=== PATIENT | male | born 1945 | race Caucasian/White ===

== ENCOUNTER → 2019-04-17 | Outpatient (CLI) | payer MEDICARE, OTHER | LOC: COL.RAD 12:26 | DX: M19.042 Primary osteoarthritis, left hand (principal) | CPT/HCPCS: J3301; Q9967 ==

== ENCOUNTER 2021-04-14 08:23 | Day surgery (SDC) | payer MEDICARE, OTHER ==
[~2021-04-14] VITALS: Ht 172.7 cm; Wt 73.4 kg
[2021-04-14] MEDS ORDERED: LASIX 40MG TABL40 MG PO (09:06)
[2021-04-14] MEDS ORDERED: LIPITOR 40MG TA40 MG PO (09:06)
[2021-04-14] MEDS ORDERED: PRIL40 PO (09:06)
[2021-04-14] MEDS ORDERED: ALDACTONE50 MG PO (09:07)
[2021-04-14] MEDS ORDERED: K-TAB10 PO (09:07)
[2021-04-14] MEDS ORDERED: NATURE'S BLEND100 M2 PO (09:08)
[2021-04-14 09:21] VITALS: BP 157/75; PULSE 94; TEMP 97.8
[2021-04-14 10:25] VITALS: BP 131/63; PULSE 92; TEMP 97.8
--- NOTE | 2021-04-14 10:25 | NUR ---
PATIENT BROUGHT BACK TO [facility] V[address] CART. AMBULATED WITHOUT DIFFICULTY. PLACED ON MONITORS, VITAL SIGNS STABLE. DENIES PAIN OR NAUSEA. REPORT RECIEVED FROM LEÓN RIVERA, ALL QUESTIONS ANSWERED. IV INFUSING. FAMILY AT BEDSIDE TO DRIVE PATIENT HOME. REQUESTS SPRITE AT THIS TIME. CALL MCCARTHY WITHIN REACH, WARM BLANKET PROVIDED. WILL CONTINUE TO MONITOR.
[2021-04-14 10:40] VITALS: BP 146/75; PULSE 89
--- NOTE | 2021-04-14 10:40 | NUR ---
PATIENT TOLERATING SPRITE WITHOUT DIFFICULTY. AWAITING TO SPEAK DR. CAST AT THIS TIME. WILL CONTINUE TO MONITOR.
[2021-04-14 10:55] VITALS: BP 150/76; PULSE 87
--- NOTE | 2021-04-14 10:55 | NUR ---
PATIENT STATES HE FEELS READY TO GO HOME AT THIS TIME. DR. CAST AT BEDSIDE TO REVIEW RESULTS WITH PATIENT AND FAMILY. VITAL SIGNS STABLE.
--- NOTE | 2021-04-14 11:10 | NUR ---
IV REMOVED, INTACT. DISCHARGE INSTRUCTIONS REVIEWED WITH PATIENT AND FAMILY. PATIENT TO GET DRESSED AT THIS TIME.
--- NOTE | 2021-04-14 11:18 | NUR ---
PATIENT BROUGHT DOWN TO LOBBY VIA WHEEL CHAIR. TO DRIVE PATIENT HOME. ALL BELONGINGS IN HAND.
== END 2021-04-14 11:18 | disposition home or self-care (01) ==
LOC: SDCO 08:23
DX: I85.01 Esophageal varices with bleeding (principal); K31.89 Other diseases of stomach and duodenum; K74.60 Unspecified cirrhosis of liver; R18.8 Other ascites; K21.9 Gastro-esophageal reflux disease without esophagitis; I10 Essential (primary) hypertension; E78.5 Hyperlipidemia, unspecified; R21 Rash and other nonspecific skin eruption; Z79.899 Other long term (current) drug therapy; Z79.82 Long term (current) use of aspirin; Z87.11 Personal history of peptic ulcer disease; Z79.52 Long term (current) use of systemic steroids
CPT/HCPCS: J2704; J7120

== ENCOUNTER 2021-05-26 09:29 | Outpatient (CLI) | payer MEDICARE, OTHER ==
--- NOTE | 2021-05-22 09:44 | NUR ---
LMOM WITH INSTRUCTIONS AND CALL BACK NUMBER
[~2021-05-26] VITALS: Ht 172.7 cm; Wt 75.7 kg
[2021-05-26 10:02] VITALS: BP 162/74; PULSE 97; TEMP 97.9
[2021-05-26 11:35] LABS: PERITONEAL -POLYMORPHONUCLEAR 2.9 % (0-25)
[2021-05-26 11:40] VITALS: BP 135/78; PULSE 104; TEMP 97.9
[2021-05-28 10:50] LABS: Fluid Type PERITONEAL
== END 2021-05-26 12:46 | disposition home or self-care (01) ==
LOC: COL.RAD 09:29
PROVIDERS: Internal Medicine Gastroenterology
DX: K74.60 Unspecified cirrhosis of liver (principal)
CPT/HCPCS: P9047

== ENCOUNTER → 2021-05-26 | Emergency (ER) | payer MEDICARE, OTHER ==
[~2021-05-26] MED LIST: ALDACTONE50 MG PO; K-TAB10 PO; LASIX 40MG TABL40 MG PO; LIPITOR 40MG TA40 MG PO; NATURE'S BLEND100 M2 PO; PRIL40 PO
== END ==
LOC: COL.ER 14:09
DX: R69 Illness, unspecified (principal)

== ENCOUNTER 2021-07-03 09:28 | Outpatient (CLI) | payer MEDICARE, OTHER ==
[~2021-07-03] VITALS: Ht 172.7 cm; Wt 77.0 kg
[2021-07-03 09:46] VITALS: BP 136/77; PULSE 100; TEMP 97.9
[2021-07-03 11:43] VITALS: BP 157/79; PULSE 98; TEMP 97.9
[2021-07-03 11:45] LABS: PERITONEAL -POLYMORPHONUCLEAR 3.6 % (0-25)
== END 2021-07-03 13:40 | disposition home or self-care (01) ==
LOC: COL.RAD 09:28
PROVIDERS: Internal Medicine Gastroenterology
DX: K74.60 Unspecified cirrhosis of liver (principal)
CPT/HCPCS: P9047

== ENCOUNTER → 2021-07-24 | Outpatient (CLI) | payer MEDICARE, OTHER | LOC: COL.RAD 10:26 | DX: K70.31 Alcoholic cirrhosis of liver with ascites (principal) ==

== ENCOUNTER 2021-07-27 09:16 | Outpatient (CLI) | payer MEDICARE, OTHER ==
[~2021-07-27] VITALS: Ht 172.7 cm; Wt 75.1 kg
[2021-07-27 09:42] VITALS: BP 147/82; PULSE 102; TEMP 97.5
[2021-07-27 12:23] LABS: PERITONEAL -POLYMORPHONUCLEAR 1.7 % (0-25)
[2021-07-27 12:38] VITALS: BP 134/70; PULSE 110
== END 2021-07-27 18:27 | disposition home or self-care (01) ==
LOC: COL.RAD 09:16
PROVIDERS: Internal Medicine Gastroenterology
DX: K70.31 Alcoholic cirrhosis of liver with ascites (principal)
CPT/HCPCS: P9047

== ENCOUNTER 2021-08-14 09:01 | Outpatient (CLI) | payer MEDICARE, OTHER ==
[~2021-08-14] VITALS: Ht 172.7 cm; Wt 73.5 kg
[2021-08-14 09:20] VITALS: BP 1515/85; PULSE 99; TEMP 97.2
[2021-08-14 10:34] LABS: PERITONEAL -POLYMORPHONUCLEAR 2.2 % (0-25)
[2021-08-14 11:20] VITALS: BP 134/82; PULSE 63
== END 2021-08-14 13:47 ==
LOC: COL.RAD 09:01
PROVIDERS: Internal Medicine Gastroenterology
DX: K70.31 Alcoholic cirrhosis of liver with ascites (principal)
CPT/HCPCS: P9047

== ENCOUNTER 2021-09-03 12:31 | Outpatient (CLI) | payer MEDICARE, OTHER ==
[~2021-09-03] VITALS: Ht 172.7 cm; Wt 75.3 kg
[2021-09-03] MEDS ORDERED: BUMEX 1MG TA1 MG/TA1 PO (13:27)
[2021-09-03 13:29] VITALS: BP 151/85; PULSE 85; TEMP 97.3
[2021-09-03 15:37] VITALS: BP 124/70; PULSE 101
[2021-09-03 15:54] LABS: PERITONEAL -POLYMORPHONUCLEAR 2.5 % (0-25)
--- NOTE | 2021-09-03 18:28 | NUR ---
pt has done well during his infusion of albumin. Pt is steady on his feet to bathroom at conclusion of infusion and generally feeling better. no complaints of sob at time of departure. to exit via wheelchair.
== END 2021-09-03 18:30 | disposition home or self-care (01) ==
LOC: COL.RAD 12:31
PROVIDERS: Internal Medicine Gastroenterology
DX: K70.31 Alcoholic cirrhosis of liver with ascites (principal)
CPT/HCPCS: P9047

== ENCOUNTER 2021-10-02 08:42 | Outpatient (CLI) | payer MEDICARE, OTHER ==
[~2021-10-02] VITALS: Ht 172.7 cm; Wt 72.9 kg
[~2021-10-02 08:42] MED LIST changes: +BUMEX 1MG TA1 MG/TA1 PO
[2021-10-02 09:03] VITALS: BP 136/83; PULSE 100; TEMP 97.5
[2021-10-02 11:51] VITALS: BP 90/42; PULSE 101; TEMP 97.6
[2021-10-02 12:25] LABS: PERITONEAL -POLYMORPHONUCLEAR 2.7 % (0-25)
--- NOTE | 2021-10-02 14:48 | NUR ---
Pt assisted out to ride's car by wheelchair with belongings. INT was DC'd with catheter intact.
== END 2021-10-02 14:49 | disposition home or self-care (01) ==
LOC: COL.RAD 08:42
PROVIDERS: Internal Medicine Gastroenterology
DX: K70.31 Alcoholic cirrhosis of liver with ascites (principal)
CPT/HCPCS: P9047

== ENCOUNTER 2021-10-16 08:54 | Outpatient (CLI) | payer MEDICARE, OTHER ==
[~2021-10-16] VITALS: Ht 172.7 cm; Wt 70.7 kg
[2021-10-16 09:12] VITALS: BP 154/89; PULSE 112; TEMP 97.9
--- NOTE | 2021-10-16 09:30 | NUR ---
pt taken to ultrasound and care given over to bc.
[2021-10-16 11:11] VITALS: BP 117/63; PULSE 105; TEMP 97.9
== END 2021-10-16 13:44 ==
LOC: COL.RAD 08:54
PROVIDERS: Internal Medicine Gastroenterology
DX: K70.31 Alcoholic cirrhosis of liver with ascites (principal)
CPT/HCPCS: P9047

== ENCOUNTER 2021-10-23 14:51 | Observation (INO) | payer MEDICARE, OTHER ==
[~2021-10-23] VITALS: Ht 172.7 cm; Wt 58.0 kg
[2021-10-23] MEDS ORDERED: K-DUR20 MEQ PO (17:09)
[2021-10-23] MEDS ORDERED: VIRTUSSIN AC 1118 ML PO (17:17)
[2021-10-23 17:21] VITALS: BP 104/58; PULSE 102; TEMP 97.6
--- NOTE | 2021-10-23 18:31 | NUR ---
PT SITTING UP IN CHAIR ON ROOM AIR. PT STATES NO PAIN AT THIS TIME. PT STATES THAT HE IS COLD AND WOULD LIKE TO HAVE A BLANKET. BLANETS WERE GOTTEN FOR PT. AT BEDSIDE. FAMILY STATING THAT SHE WOULD LIKE FOR PT TO HAVE A WALKER IN ROOM JUST INCASE HE NEEDS IT. WALKER WAS GOTTEN AND PLACED IN ROOM. NO OTHER NEEDS/CONCERNS WERE VOICED. CALL LIGHT IS WITHIN REACH.
--- NOTE | 2021-10-23 18:56 | NUR ---
PT WAS PUT INTO COMPUTER A FULL CODE. PT AND STATES THAT HE IS A DNR. STATES THAT THEY HAVE PAPERWORK BUT IT IS AT HOME AND SHE WILL BRING A COPY WITH HER TOMORROW WHEN SHE COMES IN. PT STATES "HELL NO I DO NOT WANT ANY OF THAT STUFF DONE TO ME." CONFIRMED WITH NICOLE STRAUSS. CHELY ARMSTRONG CALLED AND INFOMRED STATES THAT SHE WILL CHANGE IT IN THE COMPUTER.
[2021-10-23 20:04] VITALS: BP 113/69; PULSE 94; TEMP 97.5
[2021-10-23 23:24] VITALS: BP 129/85; PULSE 93; TEMP 97.4
--- NOTE | 2021-10-24 00:06 | NUR ---
Pt alert and oriented this evening. Sitting in chair, but has since returned to bed. NS running at 60 ml/hr. Pt denies pain and weakness. Stated he had been up to ambulate with family during the day time. Up to void as a standby assist. VS stable. BP 129/85. Shift assessment performed. Pt refused evening melatonin, but did request something for a cough. PRN tessalon stan administered. No edema noted in the extremities. Afebrile. Lungs clear. Pt reports no questions at this time, will continue to monitor.
[2021-10-24 03:26] VITALS: BP 101/55; PULSE 83; TEMP 98.1
--- NOTE | 2021-10-24 05:34 | NUR ---
No adverse events overnight. Pt alert and oriented, resting currently. Denies pain and weakness. Up to void overnight with standby assistance. Pt ambulated well. No SOB. Denies pain. Medications administered per orders. VS stable. NS continues at 60 ml/ hr. Pt calm and cooperative. Pt reports no questions, will continue to monitor.
[2021-10-24 06:23] LABS: BASO # 0.1 K/mm3 (0.0-0.2); BASO % 0.6 % (0.0-2.0); EOS # 0.4 K/mm3 (0.0-0.7); EOS % 3.8 % (0.0-4.0); GRAN # 6.1 K/mm3 (1.4-6.5); GRAN % 62.7 % (42.2-75.2); HEMOGLOBIN 10.1 g/dl (13.5-18.0); LYMPH # 2.1 K/mm3 (1.2-3.4); LYMPH % 21.6 % (20.0-51.0); MEAN CELL VOLUME 97 fl (80.0-100.0); MEAN CORPUSCULAR HEMOGLOBIN 33 pg (27-31); MEAN CORPUSCULAR HGB CONC 34 g/dl (33.0-37.0); MONO # 1.1 K/mm3 (0.1-0.6); MONO % 10.8 % (1.7-9.3); PLATELET COUNT 109 K/mm3 (130-400); REDCELL DISTRIBUTION WIDTH-CV 14.6 % (11.5-14.5)
[2021-10-24 06:39] LABS: ALBUMIN 2.4 gm/dL (3.4-4.8); BILIRUBIN,TOTAL 2.4 mg/dL (0.2-1.2); CREATININE, serum 2.11 mg/dL (0.72-1.25); POTASSIUM 4.4 mmol/L (3.5-4.5); TOTAL PROTEIN 4.7 gm/dL (6.2-8.1)
[2021-10-24 06:41] LABS: HEMATOCRIT 30.1 % (42.0-52.0)
[2021-10-24 06:59] LABS: BILIRUBIN,DIRECT 1.4 mg/dL (0.0-0.5)
[2021-10-24 07:22] VITALS: BP 102/57; PULSE 88; TEMP 97.3
--- NOTE | 2021-10-24 08:13 | NUR ---
PT LAYING SUPINE IN BED ON ROOM AIR. PT STATES THAT HE HAS BEEN TRYING TO CALL FOR BREAKFAST AND HAS BEEN UNABLE TO GET THROUGH. PT STATES NO PAIN OR DISCOMFORT AT THIS TIME. PT STATES THAT "I HAD A REALLY GOOD NIGHT, I SLEPT REALLY GOOD AND FEEL REALLY RESTED." PT STATES THAT HE WOULD LIKE TO HAVE COFFEE AND A CUP OF ICE. ITEMS WERE GOTTEN FOR PT. CALL LIGHT IN REACH.
[2021-10-24] MEDS ORDERED: TESSALON P100 MG/CAP PO (09:51)
--- NOTE | 2021-10-24 12:38 | NUR ---
Before patient was discharged, open hearth worker prayed and offered support with patient and family.
== END 2021-10-24 11:10 | disposition home or self-care (01) ==
LOC: MEDICAL 14:51
DX: D72.829 Elevated white blood cell count, unspecified (principal); R53.1 Weakness; K70.30 Alcoholic cirrhosis of liver without ascites; K21.9 Gastro-esophageal reflux disease without esophagitis; N17.9 Acute kidney failure, unspecified; N18.9 Chronic kidney disease, unspecified; I95.9 Hypotension, unspecified; I10 Essential (primary) hypertension; E87.1 Hypo-osmolality and hyponatremia; E87.5 Hyperkalemia; Z66 Do not resuscitate; G89.29 Other chronic pain; M54.9 Dorsalgia, unspecified; Z79.899 Other long term (current) drug therapy; Z87.891 Personal history of nicotine dependence
CPT/HCPCS: G0378; J0696; J7040

== ENCOUNTER 2021-10-30 08:44 | Outpatient (CLI) | payer MEDICARE, OTHER ==
[~2021-10-30] VITALS: Ht 172.7 cm; Wt 66.3 kg
[~2021-10-30 08:44] MED LIST changes: +K-DUR20 MEQ PO; +TESSALON P100 MG/CAP PO; +VIRTUSSIN AC 1118 ML PO
[2021-10-30 09:10] VITALS: BP 113/74; PULSE 91; TEMP 97.4
[2021-10-30 11:11] LABS: PERITONEAL -POLYMORPHONUCLEAR 5.5 % (0-25)
[2021-10-30 13:47] VITALS: BP 108/62; PULSE 92; TEMP 98
== END 2021-10-30 13:40 | disposition home or self-care (01) ==
LOC: COL.RAD 08:44
PROVIDERS: Internal Medicine Gastroenterology
DX: K70.31 Alcoholic cirrhosis of liver with ascites (principal)
CPT/HCPCS: P9047

== ENCOUNTER 2021-11-03 13:46 | Observation (INO) | payer MEDICARE, OTHER ==
[~2021-11-03] VITALS: Ht 167 cm; Wt 58.0 kg
[2021-11-03 14:50] LABS: BASO # 0.1 K/mm3 (0.0-0.2); BASO % 0.6 % (0.0-2.0); EOS # 0.2 K/mm3 (0.0-0.7); EOS % 1.7 % (0.0-4.0); GRAN # 6.8 K/mm3 (1.4-6.5); LYMPH # 1.8 K/mm3 (1.2-3.4); LYMPH % 18.7 % (20.0-51.0); MEAN CELL VOLUME 93 fl (80.0-100.0); MEAN CORPUSCULAR HEMOGLOBIN 33 pg (27-31); MEAN CORPUSCULAR HGB CONC 35 g/dl (33.0-37.0); MEAN PLATELET VOLUME 8.9 fl (7.4-10.4); MONO # 0.8 K/mm3 (0.1-0.6); MONO % 8.4 % (1.7-9.3); PLATELET COUNT 151 K/mm3 (130-400); RED BLOOD COUNT 3.36 M/mm3 (4.20-5.60); REDCELL DISTRIBUTION WIDTH-CV 14.3 % (11.5-14.5)
[2021-11-03 14:55] LABS: HEMATOCRIT 31.3 % (42.0-52.0)
[2021-11-03 15:05] LABS: ALBUMIN 2.9 gm/dL (3.4-4.8); CALCIUM 8.6 mg/dL (8.4-10.2); CREATININE, serum 2.17 mg/dL (0.72-1.25); TOTAL PROTEIN 5.6 gm/dL (6.2-8.1)
[2021-11-03 15:08] LABS: POTASSIUM 6.2 mmol/L (3.5-4.5)
[2021-11-03 15:11] LABS: TROPONIN-I 0.014 ng/mL (0.00-0.033)
[2021-11-03] MEDS ORDERED: SODIUM BICARBO650 MG PO (16:57)
[2021-11-03 17:17] VITALS: BP 137/89; PULSE 105; TEMP 97.5
[2021-11-03 20:19] VITALS: BP 102/58; PULSE 97; TEMP 97.8
--- NOTE | 2021-11-03 22:40 | NUR ---
REPORT POTASSIUM OF 6.2 TO JODEE PA, PLACING ORDERS.
[2021-11-04 04:29] VITALS: BP 128/50; PULSE 93; TEMP 97.9
--- NOTE | 2021-11-04 05:26 | NUR ---
RESTED THROUGH THE NIGHT WITHOUT INCIDENT. NEEDS MET. CALL LIGHT WI REACH.
[2021-11-04 06:41] LABS: INR 1.5 (0.8-3.0); PROTHROMBIN TIME 16.7 SECONDS (9.7-12.8)
[2021-11-04 06:45] LABS: BASO # 0.1 K/mm3 (0.0-0.2); BASO % 0.6 % (0.0-2.0); EOS # 0.3 K/mm3 (0.0-0.7); GRAN # 5.3 K/mm3 (1.4-6.5); GRAN % 62.5 % (42.2-75.2); HEMOGLOBIN 10.2 g/dl (13.5-18.0); LYMPH # 2.1 K/mm3 (1.2-3.4); LYMPH % 24.8 % (20.0-51.0); MEAN CELL VOLUME 96 fl (80.0-100.0); MEAN CORPUSCULAR HEMOGLOBIN 33 pg (27-31); MEAN CORPUSCULAR HGB CONC 34 g/dl (33.0-37.0); MONO # 0.7 K/mm3 (0.1-0.6); MONO % 8.6 % (1.7-9.3); PLATELET COUNT 155 K/mm3 (130-400); RED BLOOD COUNT 3.14 M/mm3 (4.20-5.60); REDCELL DISTRIBUTION WIDTH-CV 14.4 % (11.5-14.5)
[2021-11-04 06:54] LABS: ALBUMIN 2.6 gm/dL (3.4-4.8); CALCIUM 8.7 mg/dL (8.4-10.2); CREATININE, serum 2.15 mg/dL (0.72-1.25); MAGNESIUM 1.7 mg/dL (1.6-2.6); PHOSPHOROUS 3.8 mg/dL (2.3-4.7)
[2021-11-04 06:56] LABS: POTASSIUM 5.9 mmol/L (3.5-4.5)
--- NOTE | 2021-11-04 07:20 | NUR ---
CRITICAL K+ CALLED TO CHELY GILES, WHO READ BACK THE RESULTS.
[2021-11-04 07:29] VITALS: BP 118/63; PULSE 90; TEMP 97.9
[2021-11-04] MEDS ORDERED: LACTULOSE10 GM/153 PO (08:04)
--- NOTE | 2021-11-04 09:19 | NUR ---
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 He states he is not in pain. Bail Bonding Agent offered God's blessings and mentioned she will keep patient in her prayers.
--- NOTE | 2021-11-04 10:50 | NUR ---
SW met with the patient to discuss discharge plan. The patient lives in [place] with his , Denise (ph#[phone]). He reports independence with ADLs and has a walker and walking sticks. The patient's PCP is Dr. Drake Jerez in [place] and he receives his medications at [facility]. The patient has a DPOA-HC in EMR that designates his , Denise. The alternate is Jeanne Peterson. The patient states that he completed a new DPOA-HC, where Jeanne is off of if and there is a different alternate person. SW to follow up with the patient's about this. The patient states that his will be up to the hospital this afternoon. A palliative care consult was ordered. PT/OT have been ordered. SW to continue to follow.
--- NOTE | 2021-11-04 11:15 | NUR ---
Critical K+ called to CHELY Li, who read back to results.
[2021-11-04 11:58] VITALS: BP 130/61; PULSE 81; TEMP 97.2
--- NOTE | 2021-11-04 13:43 | NUR ---
Met with patient at bedside. He has a good understanding of his health status and has had conversations with multiple providers about what his options are. He and his have been discussing hospice and when to start those services but don't feel he is at that point yet.
--- NOTE | 2021-11-04 14:41 | NUR ---
Spoke with and BUNNY Slaughter. had questions about what hospice is and if the patient can continue to have paracentesis done. SW provided the [facility] hospice list to patient's and I described various services hospice offeres and generally what is means to choose to use their services. Provided my contact information at well.
--- NOTE | 2021-11-04 14:45 | NUR ---
The patient's , Denise, arrived to the hospital. BUNNY and Palliative Care RN, Arielle, met with Denise. Denise states that the patient's mind and heart are not ready for hospice, but his body probably is. She states that they have been researching hospice agencies. They are not looking at hospice yet. Denise was interested in a list of hospice agencies that go out to [place], [place]. BUNNY provided her with Medicare.gov's list. Plan is to return home upon discharge. BUNNY then informed Denise of the patient being downgraded to observation status. BUNNY presented and read the Medicare Outpatient Observation Notice Form outloud to Denise. Denise verbalized understanding and signed the form. BUNNY provided her with a copy. *Discharge plan: home with *
--- NOTE | 2021-11-04 15:16 | NUR ---
The patient's , Denise, approached BUNNY. She states that after telling the patient she is observation status, the patient is just wanting to return home today. She states that the patient is stating that he can do everything himself at home, while he has to wait for things here. BUNYN informed Denise how the patient does have 48 hours at the hospital under observation status. Denise verbalized understanding. Denise and the patient would like to talk to the doctor or PA. BUNNY notified the PA. BUNNY inquired if they would be interested in home health. Denise states that the patient had it in the past, but he pulled his hamstring working with therapy and they are not interested in it at this time. She states that the patient has home exercise programs he can do. Denise states that she plans on contacting the hospice agencies to inquire which ones have palliative care and then who can accomodate the paracentesis, when they do decide to switch to hospice. *Discharge plan: home with *
--- NOTE | 2021-11-04 16:24 | NUR ---
Critical K+ called to CHELY Li who read back the results.
[2021-11-04 16:43] VITALS: BP 110/68; PULSE 87; TEMP 97.6
--- NOTE | 2021-11-04 18:00 | NUR ---
SCHEDULED MEDICATIONS GIVEN. SHIFT ASSESSMENT PERFORMED. VSS. PATIENT MENTAL STATUS DECLINED TOWARDS END OF SHIFT. PATIENT DROWSY AND UNABLE TO ANSWER ALL OF ORIENTATION QUESTIONS CORRECTLY. BS 92. INSULIN AND DEXTROSE ADMINISTERED FOR ELEVATED K+. ATTEMPTED TO CONTACT HENNY ARMSTRONG 2X REGARDING CHANGE IN MENTAL STATUS. UNABLE TO CONTACT. ONCOMING NURSE AWARE OF DECLINING MENTAL STATUS. PATIENT IS CURRENTLY RESTING IN BED. CALL LIGHT IN REACH. FALL PERCAUTIONS IN PLACE.
[2021-11-04 19:37] VITALS: BP 129/69; PULSE 96; TEMP 98.3
--- NOTE | 2021-11-04 20:34 | NUR ---
Patient is resting in bed, alert and oriented x 3, VSS, tachycardic 100-116. Telemetry in [address]. K+ still high 6.1. Day RN provided insulin and dextrose 50%. Waiting for nex K+ lab results 2300. Assessment completed, meds provided. no further needs at thist time. Continue monitoring.
[2021-11-04 23:54] VITALS: BP 112/49; PULSE 102; TEMP 97.6
--- NOTE | 2021-11-05 00:28 | NUR ---
Received results from laboratory about K+ result 6.0. Called hospitalist, Aileen, about it and different interventions. Ordered contact Director Script, Kb. I called him but call unanswered. Left message in his cellphone.
--- NOTE | 2021-11-05 01:48 | NUR ---
Called Kb about patient K+, verbal order of 8.4 g veltassa now and after that daily. Reported to Aileen, added to meds. To be provided once available.
[2021-11-05 04:05] VITALS: BP 148/74; PULSE 114; TEMP 97.6
--- NOTE | 2021-11-05 06:02 | NUR ---
Patient assissted to the restroom. Telemetry revised. He has been tachycardic all night 100-120. Right now sleeping.
[2021-11-05 06:49] LABS: CALCIUM 9.7 mg/dL (8.4-10.2); CREATININE, serum 2.37 mg/dL (0.72-1.25); MAGNESIUM 1.9 mg/dL (1.6-2.6)
[2021-11-05 06:53] LABS: POTASSIUM 5.8 mmol/L (3.5-4.5)
--- NOTE | 2021-11-05 06:58 | NUR ---
Lab restults back K+ 5.8 Report given to day RN.
[2021-11-05 08:00] VITALS: BP 133/81; PULSE 58
--- NOTE | 2021-11-05 09:32 | NUR ---
PT RESTLESS IN BED, ATTEMPTING TO GET UP AND AMBULATE. MORNING MEDICATIONS GIVEN. SHIFT ASSESSMENT COMPLETED. PT ABDOMEN IS DISTENDED AND FIRM. THIS RN NOTED NO STITCHES TO PARACENTESIS INCISION SITE. BED ALARMS IN PLACE, AT BEDSIDE. PT ONLY ORIENTED TO SELF AT THIS TIME, STATES THIS IS NOWHERE NEAR HIS BASELINE. WILL CONTINUE TO MONITOR.
--- NOTE | 2021-11-05 10:40 | NUR ---
Met with patient's at bedside. Patient was non-contributary with our conversation. is concerned with the patient's decline overnight and had some questions for me about hospice. She states that the patient expressed the desire to at home and she would be willing and able to care for him at hard. She stated it would be hard but doable. I encouraged her to seek help from family and friends if she does decide on home hospice. A sister was called to be at bedside for rounding and hospice decision pending that conversation. SW aware and looking at options for care.
--- NOTE | 2021-11-05 11:59 | NUR ---
Sat with patient and family during rounds. They are ready to move patient to comfort care and home hospice with [facility]. SW working on discharge plans. All questions answered. plans to stay with patient continuously while still here.
[2021-11-05] MEDS ORDERED: ROXANOL 20MG20 MG/ML SL (13:25)
[2021-11-05] MEDS ORDERED: SYSTANE 0.4%-0.1 SOL OU (13:25)
[2021-11-05] MEDS ORDERED: ATIVAN 1MG T1 MG/TAB PO (13:25)
[2021-11-05] MEDS ORDERED: DULCOLAX S10 MG/SUPP RC (13:25)
[2021-11-05] MEDS ORDERED: TRANSDERM-0.5 MG/21 TD (13:25)
[2021-11-05] MEDS ORDERED: ATROPINE SULFATE5 ML SL (13:27)
[2021-11-05] MEDS ORDERED: SYSTANE 0.3-0.1 EACH OP (13:27)
[2021-11-05] MEDS ORDERED: BLUE-EMU LIDOC1 EACH TP (13:28)
--- NOTE | 2021-11-05 14:59 | NUR ---
The patient's RN notified BUNNY that the patient's would like to speak to BUNNY. BUNNY met with the patient and his , Denise. Denise states that they patient has had a rapid decline from yesterday and that he is very weak and confused now. She inquired if the patient would qualify for inpatient status now. BUNNY staffed with the clinical team. The patient does not qualify for inpatient. BUNNY informed Denise of this. Denise states that she would like to talk to her sister and the doctor before making any decisions on care. Denise's sister, Sylvia, then arrived to the hospital. BUNNY met with Denise and Sylvia. Sylvia inquired about the patient going to [facility]. BUNNY informed Denies that we can look at that option, but that would mean they want to continue with support/aggressive treatment and that it would be private pay, due to the patient being observation status. They asked if [facility] could do hospice. BUNNY contacted Lachelle at [facility]. Lachelle states that they would not being able to take the patient for SB, due to his observation status. She states that they do not do hospice in their swing bed either. BUNNY updated Denise and Sylvia. Denise would like to take the patient home on hospice. Denise and Sylvia chose [facility] and state that they would just need a hospital bed. BUNNY contacted and faxed a referral to Ishan at [facility]. Ishan states that they can get a hospital bed out to the patient's home today. She plans on contacting the patient's to coordinate this. She states that they are able to accept the patient today. BUNNY met with Denise. Denise would like to proceed with the patient going home today and with the patient's confusion, she would like him to go by ambulance transfer. BUNNY presented the EMS Consent Form to Densie. Denise verbalized understanding and signed the form. The patient is to discharge back home with his today, 11/05, on hospice from [facility]. Transportation was set up at 1500, via [facility]. BUNNY updated the patient's RN and Ishan at [facility] of the transport time. No additional needs at this time.
--- NOTE | 2021-11-05 15:29 | NUR ---
IV D/C. TELE D/C. PT ESCORTED DOWN WITH EMS AND . WILL D/C FROM SYSTEM.
== END 2021-11-05 15:30 | disposition home or self-care (01) ==
LOC: COL.ER 13:46 → MEDICAL 15:14
PROVIDERS: Emergency Medicine; Physician Assistant; ADMIT Internal Medicine
DX: E87.5 Hyperkalemia (principal); K72.90 Hepatic failure, unspecified without coma; K70.31 Alcoholic cirrhosis of liver with ascites; E87.2 Acidosis; R53.1 Weakness; K21.9 Gastro-esophageal reflux disease without esophagitis; I12.9 Hypertensive chronic kidney disease with stage 1 through stage 4 chronic kidney disease, or unspecified chronic kidney disease; N18.9 Chronic kidney disease, unspecified; G89.29 Other chronic pain; M54.9 Dorsalgia, unspecified; D64.9 Anemia, unspecified; Z79.899 Other long term (current) drug therapy
CPT/HCPCS: 99223-AI; 99232-AI; 99239; G0378; J0610; J1644; J1815; J2405